=== PATIENT | female | born 1955 | race Caucasian/White ===

== ENCOUNTER 2017-02-21 08:08 | Inpatient (IN) | payer BC ==
[2017-01-04 13:07] LABS: BASO % 0.5 %; BASO ABS # 0.03 K/uL (0-0.2); COMPLETE YES; EOS % 1.4 %; HEMATOCRIT 40.2 % (37-47); IG% 0.2 %; LYMPH % 32.3 %; LYMPH ABS # 1.79 K/uL (1.2-3.4); MEAN CELL VOLUME 93.5 fL (80-100); MEAN CORPUSCULAR HEMOGLOBIN 30.5 pg (25-34); MEAN CORPUSCULAR HGB CONC 32.6 g/dl (32-36); MONO % 9.5 %; NEUT % 56.1 %; PLATELET COUNT 261 K/uL (130-400); WHITE BLOOD COUNT 5.55 K/uL (4.8-10.8)
[2017-01-04 13:09] VITALS: BMI 44.0
[2017-01-04 13:25] LABS: INR 0.9 (0.9-1.1)
--- NOTE | 2017-01-04 13:52 | PAT Medication Instructions ---
Service Date Jan 04, 2017. Current Home Medication List Acetaminophen (Tylenol), 1,000 MG PO PRN Cholecalciferol (Vitamin D3), 1 CAP PO HS Duloxetine Hcl (Cymbalta), 60 MG PO QPM Hydrochlorothiazide (Hctz), 25 MG PO PRN Multivitamin (Multivitamin), 1 TAB PO HS Medication Instructions For Your Scheduled Surgery - Hold the following medications the morning of surgery: Hydrochlorothiazide (Hctz), 25 MG PO PRN - Take the following medications the morning of surgery with a sip of water: Acetaminophen (Tylenol), 1,000 MG PO PRN (if needed) - Take the following medications as scheduled the night before surgery: Multivitamin (Multivitamin), 1 TAB PO HS Duloxetine Hcl (Cymbalta), 60 MG PO QPM Acetaminophen (Tylenol), 1,000 MG PO PRN (if needed) Cholecalciferol (Vitamin D3), 1 CAP PO HS Hydrochlorothiazide (Hctz), 25 MG PO PRN (if needed) If you have any questions please call us at [phone] or [phone] or [phone]
[2017-01-04 14:29] LABS: BUN/CREATININE RATIO 20.3 (10-20); CALCIUM 8.5 mg/dl (8.5-10.1); CREATININE 0.73 mg/dl (0.60-1.20); POTASSIUM 4.1 mmol/L (3.5-5.1)
--- NOTE | 2017-02-18 14:59 | HISTORY & PHYSICAL EXAMINATION ---
DATE OF ADMISSION: 02/21/2017 CHIEF COMPLAINT: Bilateral knee pain and discomfort, right side greater than left. HISTORY OF PRESENT ILLNESS: The patient is a 61-year-old female who presents for treatment of her knees. She has got fairly long history of bilateral knee pain and discomfort. The right knee is hurting more than the left, but the left knee has hurt for a longer period of time. She has been through extensive conservative treatment including having her 1 knee scoped 3 years ago. She has had steroid shots and viscosupplementation. This has become less successful over time. She is now interested in considering surgery. She did have a gastric bypass surgery 11 years or so ago in an attempt to lose weight. She still has significant obesity with a BMI of 44. PAST MEDICAL HISTORY: 1. Mild sleep apnea. 2. Fibromyalgia. 3. History of blood clots dating back to 1973 due to oral contraceptive. No clot since then and no clotting disorder. 4. Obesity with BMI 44. 5. Low back pain. PAST SURGICAL HISTORY: 1. . 2. Cholecystectomy. 3. Gastric bypass surgery 11 years ago. 4. Left knee arthroscopy 4 years ago. 5. Hysterectomy. ALLERGIES: NOVOCAIN, WHICH CAUSES SWELLING. No bleeding problems. ALSO TO PREDNISONE. CURRENT MEDICINES: Include: 1. Cymbalta once a day. 2. Unspecified water pill. 3. Vitamin D. 4. Multivitamins. SOCIAL HISTORY: A 61-year-old white female. She is single. She does live by herself. No alcohol intake. No tobacco intake. FAMILY HISTORY: Significant for heart disease and diabetes. REVIEW OF SYSTEMS: Significant for blood clot in the 70s. This was thought to be related to oral contraceptive use. She had no further clots. No known clotting disorder. No chest pain or shortness of breath. No history of DVT. History of sleep apnea but does not use a CPAP machine. PHYSICAL EXAMINATION: GENERAL: Reveals a pleasant, middle-aged female. HEAD, EYES, EARS, NOSE, AND THROAT EXAMINATION: Benign. NECK: Supple. No lymphadenopathy. LUNGS: Clear to auscultation. HEART: Regular rate and rhythm. ABDOMEN: Soft, nontender, nondistended. EXTREMITY EXAMINATION: Grossly neurovascularly intact except as follows: Examination of both knees reveals the patient walks with a slight varus alignment to her knees. She has small knee effusions bilaterally. Range of motion is near full extension, 120 degrees of flexion bilaterally. She is tender over the medial joint line of both knees. X-RAYS: X-rays of both knees show advanced bilateral knee DJD. She has got a little bit of tibial femoral subluxation. The right knee is actually a little bit worse than the left. ASSESSMENT: A 61-year-old white female with a long history of bilateral knee pain, discomfort and degenerative joint disease and failed conservative care. The right knee is more symptomatic than the left. She would like to have her right knee replaced. PLAN: We are going to proceed with right knee replacement. The risks and benefits of this procedure were explained to the patient including but not limited to DVT, PE, , infection, neurological injury, vascular injury, bleeding problem, pain, limited range of motion, stiffness, failure to relieve symptoms, incomplete relief of symptoms, need for further surgery in the future, fracture, leg length inequality, nerve palsy, persistent pain, etc. The patient understands and desires to proceed. Informed consent was obtained. She does have a history of blood clot years ago but nothing since then. Will use DVT prophylaxis including thigh-high TEDs, SCDs, and aspirin.
[2017-02-21] VITALS (7 sets, daily range): BP systolic 112–126; BP diastolic 65–76; PULSE 60–78; TEMP 36.4–36.8; O2SAT 93–99; Ht 165.1 cm; Wt 121.1 kg
[~2017-02-21] VITALS: Ht 165.1 cm; Wt 121.1 kg
[~2017-02-21 08:08] MED LIST: ACET-1256 PO; ACETAMINOPHEN 500 MG TAB PO SCH; ATROPINE SULFATE 0.1 MG/ML 5ML SYR IV PRN; BUPIVACAINE 0.25% 30 ML VIAL ONE; BUPIVACAINE 0.5 % 5 MG/1 ML PF 10ML VIAL ONE; BUPIVACAINE LIPOSOME 266 MG, BUPIVACAINE/EPINEPHRINE INJ 50 ML, SODIUM CHLORIDE 0.9% PF... INFIL SCH; CEFAZOLIN 3000 MG/65 ML D5W 65 ML IV SCH; CHOL2000 PO; DULO60CA44 PO; EpHEDrine SULFATE INJ 50 MG/ML AMP IV PRN; FAMOTIDINE 20 MG TAB PO SCH; FENTANYL CITRATE INJ 50 MCG/1 ML 2 ML VIAL IV PRN; GABAPENTIN 300 MG CAP PO SCH; HYDR25TA4 PO; LACTATED RINGER'S 1000ML 1,000 ML IV SCH; LACTATED RINGER'S 1000ML 500 ML IV ONE; METOCLOPRAMIDE HCL 10 MG TAB PO SCH; MULT-506 PO; ONDANSETRON INJ 2 MG/ML 2 ML VIAL IV PRN; SCOPOLAMINE 1.5 MG TDSY TD SCH; TRANEXAMIC ACID INJ 1,000 MG in SODIUM CHLORIDE 0.9% 100ML 100 ML IV SCH
--- NOTE | 2017-02-21 08:52 | History & Physical Bridge Note ---
H&P Re-Evaluation Bridge Note: I have examined the patient, reviewed the History & Physical and in the interval since the performance of the History & Physical I have noted the following changes of clinical significance: No changes noted
[2017-02-21] MEDS ORDERED: MIDAZOLAM HCL 1 MG/ML 2ML VIAL ONE ×4 (08:53→10:34)
[2017-02-21] MEDS ORDERED: FENTANYL CITRATE INJ 50 MCG/1 ML 2 ML VIAL ONE ×2 (08:54→10:07)
[2017-02-21] MEDS ORDERED: BUPIVACAINE/EPINEPHRINE 0.25% 1:200,000 30 ML VIAL ONE (10:18)
[2017-02-21] MEDS ORDERED: BACITRACIN 50000 UNIT VIAL ONE (10:18)
[2017-02-21] MEDS ORDERED: SODIUM CHLORIDE 0.9% PF 50 ML VIAL ONE (10:18)
[2017-02-21] MEDS ORDERED: BUPIVACAINE LIPOSOME 1/3% 266 MG/20 ML VIAL INFIL ONE (10:19)
[2017-02-21] MEDS ORDERED: BUPIVACAINE 0.5 % 5 MG/1 ML MPF 30ML VIAL ONE (10:20)
[2017-02-21] MEDS ORDERED: BETAMETH SOD PHOS/ACETATE IA 6 MG/ML IM PRN (10:45)
[2017-02-21] MEDS ORDERED: NURSING VERBAL MED ORDER ONE (10:45)
[2017-02-21] MEDS ORDERED: PROPOFOL IV EMULSION 10 MG/ML 20 ML VIAL IV ONE ×2 (11:15→12:09)
[2017-02-21] MEDS ORDERED: LIDOCAINE HCL 2% 2 ML VIAL (20MG/ML) ONE (11:15)
--- NOTE | 2017-02-21 13:02 | [facility] Post Operative Brief Note ---
Immediate Operative Summary Operative Date Feb 21, 2017. Pre-Operative Diagnosis Right Knee Degenerative Joint Disease; Left Knee Pain Post-Operative Diagnosis Same as preop Procedure(s) Performed Right Total Knee Arthroplasty; Left Knee Injection Surgeon Dr. Grullon Boatbuilder Supervisor Surgeon(s) Kyle Ang PA-C Estimated Blood Loss 50 ml Findings Bilateral Knee DJD Fluids (cc crystalloids) 1200 cc Specimens A. Right Knee Bone and Tissue Drains NONE Anesthesia Spinal Complication(s) None Disposition Recovery Room / PACU
[2017-02-21] MEDS ORDERED: SILVER SULFADIAZINE 1% CR 50 GM JAR EXT PRN (13:15)
[2017-02-21] MEDS ORDERED: ALUMINUM/MAGNESIUM/SIMETH (MAALOX MAX) 30 ML UDC PO PRN (13:15)
[2017-02-21] MEDS ORDERED: NO NSAIDS SCH (13:15)
[2017-02-21] MEDS ORDERED: MAGNESIUM HYDROXIDE SUSP 30 ML UDC PO PRN (13:15)
[2017-02-21] MEDS ORDERED: BISACODYL 10 MG SUPP PR PRN (13:15)
[2017-02-21] MEDS ORDERED: METOCLOPRAMIDE HCL INJ 5 MG/ML 2 ML VIAL IV PRN (13:15)
[2017-02-21] MEDS ORDERED: HYDROCHLOROTHIAZIDE 25 MG TAB PO PRN (13:15)
[2017-02-21] MEDS ORDERED: ZOLPIDEM TARTRATE 5 MG TAB PO PRN (13:15)
[2017-02-21] MEDS ORDERED: ONDANSETRON INJ 2 MG/ML 2 ML VIAL IV PRN (13:15)
[2017-02-21] MEDS ORDERED: DiphenhydrAMINE HCL 50 MG/ML VIAL IV PRN (13:15)
--- NOTE | 2017-02-21 13:46 | Anesthesiology Progress Note ---
Anesthesia Post Op Note Date & Time Feb 21, 2017 at 13:46 Vital Signs Pain Intensity: 0 Vital Signs Past 12 Hours Date Time Temp Pulse Resp B/P (MAP) Pulse Ox O2 Delivery O2 Flow Rate FiO2 02/21/17 13:25 60 13 106/73 97 Nasal Cannula 3 02/21/17 13:15 61 17 115/63 97 Nasal Cannula 3 02/21/17 13:05 71 18 121/59 97 Nasal Cannula 3 02/21/17 12:59 36.5 69 18 106/60 97 Nasal Cannula 3 02/21/17 08:48 36.8 78 20 126/69 97 Room Air Notes Mental Status: alert / awake / arousable, participated in evaluation Pt Amnestic to Procedure: Yes Nausea / Vomiting: adequately controlled Pain: adequately controlled Airway Patency, RR, SpO2: stable & adequate BP & HR: stable & adequate Hydration State: stable & adequate Neuraxial Anesthesia: was administered, sensory block is resolving Anesthetic Complications: no major complications apparent
--- NOTE | 2017-02-21 13:49 | DIAGNOSTIC IMAGING REPORT ---
R KNEE 1 OR 2 VIEWS ROUTINE CLINICAL HISTORY: AP/LATERAL IN PACU RIGHT KNEE knee replacement COMPARISON: None. DISCUSSION: Anatomic alignment status post total right knee arthroplasty. Good contact between prosthetic and underlying bone. Expected soft tissue postoperative change. IMPRESSION: Anatomic alignment status post total right knee arthroplasty. The above report was generated using voice recognition software. It may contain grammatical, syntax or spelling errors. Electronically signed by: Arslan Crowe M.D. 02/21/2017 1:48 PM Dictated Date/Time: 02/21/2017 1:47 PM
[2017-02-21] MEDS ORDERED: INFLUENZA ADMINISTRATION CHARGE ONE (15:45)
[2017-02-21] MEDS ORDERED: INFLUENZA VIRUS QUAD VACCINE 0.5 ML SYR IM. ONE (15:45)
[2017-02-21] MEDS: D5W AND 1/2NSS + 20MEQ KCL 1,000 ML IV SCH ×2 (15:55→22:21)
[2017-02-21] MEDS: CHECK SCOPOLAMINE PATCH PLACEMENT SCH (15:57)
[2017-02-21] MEDS ORDERED: TRANEXAMIC ACID INJ 1,000 MG in SODIUM CHLORIDE 0.9% 100ML 100 ML IV SCH (18:00)
[2017-02-21] MEDS: OXYCODONE HCL IR 5 MG TAB (IMMEDIATE RELEASE) PO PRN ×2 (18:19→19:46)
[2017-02-21] MEDS: FERROUS GLUCONATE 324 MG TAB PO SCH (18:20)
[2017-02-21] MEDS: CEFAZOLIN IV 2,000 MG in DEXTROSE 5% 50ML 50 ML IV SCH (19:39)
[2017-02-21] MEDS ORDERED: MULTIVITAMIN TAB PO SCH (21:00)
[2017-02-21] MEDS ORDERED: ASPIRIN 325 MG ECTAB PO SCH (21:00)
--- NOTE | 2017-02-21 21:10 | PROGRESS NOTE ---
DATE: 02/21/2017 SUBJECTIVE: A 61-year-old white female, postop from a right knee replacement and left knee injection. She is doing pretty well. She is starting to have more pain in her leg. No chest pain or shortness of breath. Not feeling dizzy or lightheaded. OBJECTIVE: VITAL SIGNS: Temperature 36.7. Vital signs stable. PHYSICAL EXAMINATION: GENERAL: Reveals a healthy pleasant, middle-aged female. She is sitting up in her bed, looks reasonably comfortable. She is talking to her friends. LUNGS: Clear to auscultation. HEART: Has a regular rate and rhythm. ABDOMEN: Soft, nontender, nondistended. EXTREMITIES: Grossly neurovascularly intact except as follows: Examination of the right leg reveals the leg to be well aligned. Dressing is clean, dry and intact. She can dorsiflex and plantarflex her foot appropriately. She is neurologically intact. X-RAYS: X-rays of the right knee from recovery room were reviewed. It shows a cemented right posterior stabilized total knee arthroplasty. Components looked to be in good position. A little bit of a rotated film. No signs of problems. ASSESSMENT: A 61-year-old white female, postop from a right knee replacement, doing pretty well. She also had her left knee injected. Her pain is controlled. She is neurologically intact. PLAN: 1. DVT prophylaxis including thigh-high TEDs, SCDs, and aspirin twice a day. 2. PT/OT. Weight bear as tolerated. Right total knee protocol. 3. Pain control, doing pretty well with current pain regimen. 4. IV antibiotics x24 hours. 5. Disposition: She is hoping to be discharged to [facility] for a brief rehab stay once medically stable.
[2017-02-21] MEDS: TAPENTADOL ER 50 MG TABCR PO SCH (22:19)
[2017-02-21] MEDS: DOCUSATE SODIUM 100 MG CAP PO SCH (22:20)
[2017-02-21] MEDS: SENNA 8.6 MG TAB PO SCH (22:20)
[2017-02-21] MEDS: ACETAMINOPHEN 500 MG TAB PO SCH (22:20)
[2017-02-21] MEDS: CHOLECALCIFEROL 1000 INTER.UNIT TAB PO SCH (22:21)
[2017-02-21] MEDS: DULOXETINE HCL 60 MG CAP PO SCH (22:21)
--- NOTE | 2017-02-21 22:31 | OPERATIVE REPORT ---
DATE OF OPERATION: 02/21/2017 SURGEON: Dr. Ernesto Grullon. DEPLOYMENT MANAGER: PHAN Winkler. PREOPERATIVE DIAGNOSIS: Bilateral knee degenerative joint disease. POSTOPERATIVE DIAGNOSIS: Same. PROCEDURE PERFORMED: 1. Right cemented posterior stabilized total knee arthroplasty. 2. Left knee injection with 2 mL of Celestone and 6 mL of 0.5% Marcaine. COMPLICATIONS: None. ESTIMATED BLOOD LOSS: 50 mL. FLUID REPLACEMENT: 1200 mL crystalloid fluid replacement. TOURNIQUET TIME: 51 minutes at 350 mmHg. ANESTHESIA: Spinal with adductor canal block. DRAINS: None. OPERATIVE INDICATIONS: The patient is a 61-year-old female who has had a long history of bilateral knee pain and discomfort. She describes it has gotten worse over the past several years. She did have a history of her left knee arthroscopy about 3-4 years ago with fairly minimal relief. She has been through extensive treatment including steroid shots and visco supplementation. This is minimally effective. She would like to proceed with total knee arthroplasty. Her right knee has been bothering more than the left. She elected to proceed with right knee replacement. She also wanted us to inject her left knee at the time under anesthesia. OPERATIVE FINDINGS: Operative findings revealed advanced bilateral knee DJD. She had a pretty extensive grade 4 changes in the medial femoral condyle and medial tibial plateau. She had a very large knee joint effusion on the right side. She had varus deformity to her knee. Large soft tissue envelope. OPERATIVE IMPLANTS: Operative implants consisted of: 1. Biomet Vanguard size 67.5 right posterior stabilized femoral component. 2. Biomet size 71 tibial tray. 3. A 12 mm posterior stabilized polyethylene insert. 4. A 31 x 8 all poly patella. OPERATIVE PROCEDURE: The patient was taken to the operating room, identified and placed on operative table in supine position. All contact areas were appropriately padded. IV antibiotics were provided by the anesthesia team. A spinal anesthetic and adductor canal block had been provided in the holding area. Ferrari catheter was placed in sterile fashion. Right thigh tourniquet was then placed. Attention was first drawn to the left knee. The left knee was cleaned with alcohol. I injected the left knee with 2 mL of Celestone and 6 mL of 0.5% Marcaine. A bandage was applied followed by ALESSANDRO stockings. Attention was then drawn to the right leg. The right leg was prepped and draped in the usual sterile fashion. The right leg was then elevated and exsanguinated with the use of an Esmarch. The tourniquet was placed at 350 mmHg. An anterior approach to the right knee was then performed through a longitudinal incision centered over the patella. Sharp dissection was carried through the subcutaneous tissues down to the level of the extensor mechanism. A medial parapatellar arthrotomy incision was made. Some subperiosteal dissection was carried out medially. The fat pad was resected from beneath the patellar tendon. The lateral patellofemoral ligament was released. The patella was everted and knee was flexed. The osteophytes were taken off the distal femur. The ACL and PCL were then released from the distal femur and the tibia subluxated anteriorly. The external tibial alignment jig was then placed in the anterior face of the tibia and adjusted 14 mm medially. Proximal tibial cut was made to remove about 3-4 mm of bone from the most deficient aspect of the medial side. She did not have excessive wear of the medial side, so we took a little extra bone. The tibia was then sized to a size 71. Attention was then drawn to the femur. The distal femur was entered with a sharp drill bit. Intramedullary canal was suctioned. A right 5 degree valgus cutting guide was placed. Distal femoral cutting block was pinned in place. Distal femoral cut was made to take an additional 3 mm of bone off the distal femur. The femur was then sized to a size 67.5. We did downsize this slightly. The AP cutting block was pinned parallel to the epicondylar axis, which was 3 degrees of external rotation. The anterior cut, anterior chamfer, posterior cut, and posterior chamfer cuts were made. Box cutting guide was placed and adjusted slightly lateral and the box cut was made. The knee was flexed. The remnants of the medial and lateral menisci were excised. The osteophytes were taken off the posterior aspect of the femur. A trial femoral component was placed. Tibial tray was pinned in maximum external rotation and drill and stem punch were used to create defect in proximal tibia for the tibial tray. The knee was then trialed and a 12 mm insert was fit most appropriately. It was still a little bit loose with this, but I felt it was too tight with a 14. We elected to use these implants. Attention was then drawn to the patella. The patella was cleaned of all soft tissues. Patella thickness measured 21 mm in thickness. This was cut down to 13. It was sized to a size 31 patella. Lug holes were drilled for the 31 patella. Lateral osteophyte was removed. Patella button was placed. Knee was taken through range of motion and patella tracked nicely with no thumbs test. Attention was then drawn toward placement of permanent components. All trial components were removed. Bone plug was placed in the distal femur to limit blood loss. A double batch of Palacos G cement was mixed. A right size 67.5 posterior stabilized femoral component, size 71 tibial tray, a 12 mm posterior stabilized polyethylene insert, and a 31 x 8 all poly patella were then cemented in place. Knee was brought out into full extension until cement hardened. A final cement check was then performed. Pericapsular tissues were injected with a total of 100 mL of a combination of 20 mL of Exparel, 30 mL of normal saline, 50 mL of 0.25% Marcaine with epinephrine. The patient did receive 1 gram of tranexamic acid. The tourniquet was then let down for final tourniquet time of 51 minutes. Hemostasis was assured with use of electrocautery. The extensor mechanism was then closed with a combination of #1 PDS suture and #1 Vicryl suture in a [id number] fashion. Extensor mechanism was checked and found to be intact. Subcutaneous tissues were then closed with 2-0 Dexon suture in a buried interrupted fashion. Skin was closed with skin kaelyn. The leg was then cleaned, dried and a sterile dressing of Xeroform, 4 x 4, sterile cast padding and Scott bandage were applied. The patient was then transferred to the recovery room in stable condition. The patient tolerated the procedure with no complications. All needle and sponge counts were correct at the end of the operation. I attest to the content of the Intraoperative Record and any orders documented therein. Any exception s are noted below.
[2017-02-22] MEDS: CHECK SCOPOLAMINE PATCH PLACEMENT SCH ×3 (00:20→16:11)
[2017-02-22] MEDS: OXYCODONE HCL IR 5 MG TAB (IMMEDIATE RELEASE) PO PRN ×3 (00:32→19:19)
[2017-02-22] MEDS: CEFAZOLIN IV 2,000 MG in DEXTROSE 5% 50ML 50 ML IV SCH (03:20)
[2017-02-22] MEDS: ACETAMINOPHEN 500 MG TAB PO SCH ×3 (05:26→21:05)
[2017-02-22] MEDS: D5W AND 1/2NSS + 20MEQ KCL 1,000 ML IV SCH ×2 (05:26→10:28)
[2017-02-22 06:57] LABS: HEMATOCRIT 39.3 % (37-47); MEAN CELL VOLUME 92.3 fL (80-100); MEAN CORPUSCULAR HGB CONC 32.6 g/dl (32-36); MEAN PLATELET VOLUME 10.3 fL (7.4-10.4); PLATELET COUNT 229 K/uL (130-400); RED BLOOD COUNT 4.26 M/uL (4.2-5.4); WHITE BLOOD COUNT 9.95 K/uL (4.8-10.8)
[2017-02-22 07:25] LABS: CALCIUM 8.6 mg/dl (8.5-10.1); CREATININE 0.75 mg/dl (0.60-1.20); POTASSIUM 4.4 mmol/L (3.5-5.1)
[2017-02-22 07:50] VITALS: BP 131/78; PULSE 71; TEMP 36.7; O2SAT 95
[2017-02-22] MEDS ORDERED: ASPEC81 PO (08:28)
[2017-02-22] MEDS ORDERED: RXC5 PO (08:28)
[2017-02-22] MEDS ORDERED: NCYSR50 PO (08:28)
[2017-02-22] MEDS ORDERED: ACET-24 PO (08:28)
--- NOTE | 2017-02-22 08:29 | Discharge Instructions ---
Discharge Instructions Date of Service Feb 22, 2017. Admission Reason for Admission: Right Knee Degenerative Joint Disease Discharge Discharge Diagnosis / Problem: Right Knee Replacement Discharge Goals Goal(s): Decrease discomfort, Improve function, Increase independence, Improve disease control, Therapeutic intervention Activity Recommendations Activity Level: Assistance Required Therapies: Physical Therapy, Occupational Therapy . Additional Information Patient informed of condition: Yes Advance Directives: No DNR: No Level of Care: Acute Rehab Communicable Disease: No Prognosis: Improving Instructions / Follow-Up Instructions / Follow-Up ACTIVITY RECOMMENDATIONS: Physical Therapy: * You will go to physical therapy three times each week for four to six weeks after your surgery in order to regain your knee range of motion and to retrain your knee to work properly. * It is just as important to make sure you are getting your knee perfectly straight as it is to regain your knee bend. * Taking a pain pill an hour before therapy can help you have a more productive and comfortable therapy session. Home Exercise: * You were shown a series of exercises (heel props, heel slides, etc.) in the hospital. Do these exercises three to four times each day including the exercises you were shown in physical therapy. Walking: * Get up and walk several times each day. For the first four weeks, try not to stand or walk for more than one hour at a time. If you do stand or walk for more than one hour, you will not hurt anything, but your knee and leg will likely swell. * As you feel comfortable, you may change from the walker or crutches to a cane and then to independent walking. MEDICATIONS: New Medicine: * You will likely be taking one or more of these medications: 1. Nucynta - A long-acting pain medication. Take 1 tablet twice a day for the first ten days to decrease your baseline level of pain. 2. Oxycodone - A quick and shorter-acting pain medication. Take one to two tablets every four to six hours to lessen your pain. 3. Aspirin - Thins your blood to lessen the chance of forming a blood clot. * The most common side effects of pain medicine and iron are nausea and constipation. If nausea or constipation is too much of a problem or if you have any questions about your new medicines or doses, call [facility] at [phone]. We will try to help you manage these issues. VERY IMPORTANT TO READ AND REVIEW" Pain: * The immediate post-operative period after knee replacement surgery is often quite painful. * You are given a prescription for pain medicine. You should take it, as directed, when you need it, especially before physical therapy and before going to bed. Pain that interferes with sleep is very common and can last several months. * You will likely need pain medicine for the first four to six weeks. It will not stop all of the pain. The pain will lessen and as you feel better, you may change to milder pain medicine such as Tylenol. * The most common side effects of pain medicine are nausea and constipation, so don't take more than you need. SPECIAL CARE INSTRUCTIONS: TEDs/Elastic Stockings: * The white elastic stockings help limit swelling and prevent blood clots from forming in your legs. The more you wear them, the more they work. * Wear them for six weeks after knee replacement surgery and four weeks after partial knee replacement. Prevention of Infection: * Take antibiotics one hour before any dental cleaning, dental work, urological procedure, gastrointestinal procedure or any invasive surgery in order to prevent your new joint from getting infected. * You may get the antibiotics from the doctor performing the procedure or you may call our office at before and we will call in a prescription to the pharmacy of your choice. Things to Watch For: * Drainage from the incision site that occurs more than one week after your surgery. * Severely increased knee/leg pain or swelling. * Increased redness at the incision site. * Fever above 102 degrees Fahrenheit. * Unusual chest pain or shortness of breath. * Unusual pain or burning with urination. Call [facility] at with any of the above problems or if you have any questions about your medicines or recovery. FOLLOW UP VISIT: Make an appointment to see your doctor for approximately two weeks after surgery for a progress check and staple removal by calling the office at . Current Hospital Diet Patient's current hospital diet: Regular Diet Discharge Diet Recommended Diet: Regular Diet Procedures Procedures Performed: Right Total Knee Arthroplasty; Left Knee Injection Pending Studies Studies pending at discharge: no Medical Emergencies . Who to Call and When: Medical Emergencies: If at any time you feel your situation is an emergency, please call [phone] immediately. . Non-Emergent Contact Non-Emergency issues call your: Surgeon . . "Provider Documentation" section prepared by Ernesto Grullon. . Core Measure Problem Core Measures: None
--- NOTE | 2017-02-22 08:47 | PROGRESS NOTE ---
DATE: 02/22/2017 SUBJECTIVE: A 61-year-old female postop day 1 from a right knee replacement and left knee injection. She is doing pretty well. Pain is reasonably well controlled overnight. No chest pain or shortness of breath. Not feeling dizzy or lightheaded. OBJECTIVE: VITAL SIGNS: Temperature is 36.7. Vital signs stable. GENERAL: Physical examination reveals a pleasant, middle-aged female. She was sitting up in the bathroom and washing up when I visited this morning. EXTREMITIES: Examination of the right leg reveals the dressing to be clean, dry and intact. She can dorsiflex and plantarflex her foot appropriately. She is neurologically intact. LABORATORY DATA: Hemoglobin is 12.8 and hematocrit 39.3. Electrolytes are stable. ASSESSMENT: A 61-year-old female postop day 1 from right knee replacement and left knee injection. She is doing pretty well. Pain has been reasonably well controlled. PLAN: 1. DVT prophylaxis including thigh-high TEDs, SCDs, and low dose aspirin. 2. PT/OT. Weightbear as tolerated. Right total knee protocol. 3. Pain control. Doing reasonably well with current pain regimen. 4. Disposition: She is hoping to be discharged to [facility] for a brief rehab stay. COLLIN
[2017-02-22] MEDS: TAPENTADOL ER 50 MG TABCR PO SCH ×2 (09:11→21:04)
[2017-02-22] MEDS: PANTOprazole SOD 40 MG TAB PO SCH (09:12)
[2017-02-22] MEDS: MULTIVITAMIN TAB PO SCH (09:13)
[2017-02-22] MEDS: DOCUSATE SODIUM 100 MG CAP PO SCH ×2 (09:13→21:05)
[2017-02-22] MEDS: FERROUS GLUCONATE 324 MG TAB PO SCH ×3 (09:13→18:31)
[2017-02-22] MEDS: ASPIRIN 81 MG ECTAB PO SCH ×2 (10:29→21:05)
[2017-02-22 10:35] VITALS: BP 120/67; PULSE 75; O2SAT 96
--- NOTE | 2017-02-22 10:47 | Anesthesiology Progress Note ---
Anesthesia Post Op Note Date & Time Feb 22, 2017 at 10:46 Vital Signs Pain Intensity: 6.0 Vital Signs Past 12 Hours Date Time Temp Pulse Resp B/P (MAP) Pulse Ox O2 Delivery O2 Flow Rate FiO2 02/22/17 07:50 36.7 71 16 131/78 (95) 95 Room Air 02/22/17 07:31 Room Air 02/22/17 00:25 Room Air 02/21/17 23:28 36.7 60 14 112/65 (81) 93 Room Air Notes Mental Status: alert / awake / arousable, participated in evaluation Pt Amnestic to Procedure: Yes Nausea / Vomiting: adequately controlled Pain: adequately controlled Airway Patency, RR, SpO2: stable & adequate BP & HR: stable & adequate Hydration State: stable & adequate Neuraxial Anesthesia: was administered, sensory block resolved SAB with PNB tolerated well. Pain post op, history of fibromyalgia. Improved with po pain meds ordered from orthopedics.
[2017-02-22 11:28] VITALS: BP 109/71; PULSE 85; TEMP 36.7; O2SAT 96
[2017-02-22] MEDS: MoRPHine SULFATE 2 MG/ML CARP IV PRN ×3 (13:46→20:02)
[2017-02-22 15:33] VITALS: BP 110/67; PULSE 60; TEMP 36.9; O2SAT 96
[2017-02-22] MEDS: DULOXETINE HCL 60 MG CAP PO SCH (21:50)
[2017-02-22] MEDS: SENNA 8.6 MG TAB PO SCH (21:51)
[2017-02-22] MEDS: CHOLECALCIFEROL 1000 INTER.UNIT TAB PO SCH (22:21)
[2017-02-22 22:58] VITALS: BP 116/63; PULSE 68; TEMP 37.5; O2SAT 94
[2017-02-23] MEDS: CHECK SCOPOLAMINE PATCH PLACEMENT SCH ×3 (00:11→16:00)
[2017-02-23] MEDS: MoRPHine SULFATE 2 MG/ML CARP IV PRN ×3 (00:23→13:17)
[2017-02-23] MEDS: ACETAMINOPHEN 500 MG TAB PO SCH ×3 (05:19→21:16)
[2017-02-23 07:09] VITALS: BP 116/73; PULSE 55; TEMP 36.7; O2SAT 99
[2017-02-23] MEDS: ASPIRIN 81 MG ECTAB PO SCH ×2 (08:41→21:15)
[2017-02-23] MEDS: TAPENTADOL ER 50 MG TABCR PO SCH ×2 (08:41→21:14)
[2017-02-23] MEDS: PANTOprazole SOD 40 MG TAB PO SCH (08:41)
[2017-02-23] MEDS: FERROUS GLUCONATE 324 MG TAB PO SCH ×3 (08:41→18:00)
[2017-02-23] MEDS: MULTIVITAMIN TAB PO SCH (08:41)
[2017-02-23] MEDS: OXYCODONE HCL IR 5 MG TAB (IMMEDIATE RELEASE) PO PRN ×3 (08:41→21:13)
[2017-02-23] MEDS: DOCUSATE SODIUM 100 MG CAP PO SCH ×2 (08:42→21:14)
--- NOTE | 2017-02-23 13:47 | PROGRESS NOTE ---
DATE: 02/23/2017 DATE: 02/23/2017 SUBJECTIVE: A 61-year-old white female postop day 2 from a right knee replacement, left knee injection. She is doing pretty well. A little bit more pain last evening. No chest pain or shortness of breath. Not feeling dizzy or lightheaded. OBJECTIVE: VITAL SIGNS: Temperature 36.7. Vital signs stable. PHYSICAL EXAMINATION: GENERAL: Reveals a healthy, pleasant middle-aged female. I had to wake her this morning. LUNGS: Clear to auscultation. HEART: Has a regular rate and rhythm. ABDOMEN: Soft, nontender, nondistended. EXTREMITY EXAMINATION: Grossly neurovascularly intact except as follows: Examination of the right leg reveals the dressing to be clean, dry and intact. Leg is well aligned. She can dorsiflex and plantarflex her foot appropriately. She is neurologically intact. ASSESSMENT: A 61-year-old white female postop day 2 from a right knee replacement, left knee injection. She is doing pretty well. Pain is reasonably well controlled. She is neurologically intact. She is waiting to look into getting into a rehab preferably or [facility] facility. PLAN: 1. DVT prophylaxis including thigh-high TEDs, SCDs, and aspirin twice a day. 2. PT/OT. Weight bear as tolerated. Left total knee protocol. 3. Pain control. Doing reasonably well with current pain regimen. 4. Disposition. She is hoping to be discharged to rehab. Awaiting insurance and [employer] reports.
[2017-02-23 15:09] VITALS: BP 106/65; PULSE 63; TEMP 36.7; O2SAT 97
[2017-02-23] MEDS: SENNA 8.6 MG TAB PO SCH (21:00)
[2017-02-23] MEDS: DULOXETINE HCL 60 MG CAP PO SCH (21:14)
[2017-02-23] MEDS: CHOLECALCIFEROL 1000 INTER.UNIT TAB PO SCH (21:15)
[2017-02-23 22:57] VITALS: BP 114/69; PULSE 75; TEMP 37.7; O2SAT 96
[2017-02-24] MEDS: CHECK SCOPOLAMINE PATCH PLACEMENT SCH (00:13)
[2017-02-24] MEDS: OXYCODONE HCL IR 5 MG TAB (IMMEDIATE RELEASE) PO PRN ×3 (02:39→12:40)
[2017-02-24] MEDS: ACETAMINOPHEN 500 MG TAB PO SCH (06:15)
--- NOTE | 2017-02-24 07:48 | PROGRESS NOTE ---
DATE: 02/24/2017 SUBJECTIVE: 61-year-old female postop day 3 from a right knee replacement. She is doing okay. Pain is reasonably well controlled. We are waiting for insurance approval for rehabilitation. No new complaints. OBJECTIVE: VITAL SIGNS: Temperature 37.7. Vital signs stable. PHYSICAL EXAMINATION: GENERAL: Reveals a healthy pleasant, middle-aged female. She is sitting up in bed, looks pretty comfortable. EXTREMITIES: Examination of the right leg reveals it to be well aligned. Dressing is clean, dry and intact. She can dorsiflex and plantarflex her foot appropriately. She is neurologically intact. ASSESSMENT: 61-year-old female postop day 3 from right knee replacement and left knee injection. She is doing pretty well. We are just waiting for insurance approval for rehabilitation. PLAN: 1. DVT prophylaxis including thigh-high TEDs, SCDs, and aspirin twice a day. 2. PT/OT. Weightbearing as tolerated. Right total knee protocol. 3. Pain control, doing pretty well with current pain regimen. 4. Disposition: She is hoping to be discharged to [facility] for a rehab stay. If not, she will look into a [facility] facility.
[2017-02-24] MEDS: TAPENTADOL ER 50 MG TABCR PO SCH (08:41)
[2017-02-24] MEDS: FERROUS GLUCONATE 324 MG TAB PO SCH ×2 (08:41→12:01)
[2017-02-24] MEDS: ASPIRIN 81 MG ECTAB PO SCH (08:42)
[2017-02-24] MEDS: DOCUSATE SODIUM 100 MG CAP PO SCH (08:42)
[2017-02-24] MEDS: MULTIVITAMIN TAB PO SCH (08:43)
[2017-02-24] MEDS: PANTOprazole SOD 40 MG TAB PO SCH (08:43)
[2017-02-24 10:04] VITALS: BP 110/72; PULSE 82; TEMP 36.8; O2SAT 98
--- NOTE | 2017-02-28 00:09 | DISCHARGE SUMMARY ---
ADMITTING PHYSICIAN AND SURGEON: Dr. Grullon. ADMITTING DIAGNOSIS: Bilateral knee degenerative joint disease. PROCEDURE PERFORMED: 1. Right total knee arthroplasty. 2. Left knee injection. SECONDARY DIAGNOSES: Sleep apnea, fibromyalgia, blood clots, obesity, low back pain. CONSULTS: None obtained. HISTORY AND PHYSICAL EXAMINATION: Well documented in the patient's chart. HOSPITAL COURSE: The patient was admitted on 02/21/2017, underwent total knee arthroplasty as well as a knee injection, tolerated the procedure well. There were no complications. She was transferred to the PACU postoperatively and later to the orthopedic floor for further care. She was given Ancef for antibiotic prophylaxis; ALESSANDRO stockings, SCDs and aspirin for DVT prophylaxis. Hemoglobin, hematocrit and vital signs were monitored during hospital stay and remained stable, did not require any blood transfusions. There were no complications. By postoperative day 3, she was tolerating a general diet. Pain was controlled with oral pain medicine. She was participating in physical therapy, had no signs or symptoms of deep vein thrombosis. On postoperative day 3, she was transferred to a rehab facility. She was given printed discharge instructions including new prescriptions for extra strength Tylenol, aspirin 81 mg b.i.d., oxycodone and Nucynta. Continue her home medicines with the exception of her home dose of aspirin which was changed. Continue physical therapy. Weightbearing as tolerated. ALESSANDRO stockings. Follow up in 10-12 days or sooner if there are any problems or concerns.
== END 2017-02-24 13:19 | DRG 470 ==
LOC: C.ACU 08:08 → C.3E 08:30 → ENRESERV 13:29
PROVIDERS: ADMIT Orthopaedic Surgery Sports Medicine; ATTEND Orthopaedic Surgery Sports Medicine
PROC: 3E0U3GC Introduction of Other Therapeutic Substance into Joints, Percutaneous Approach (ICD-10-PCS; principal; 2017-02-21 10:40)
PROC: 0SRC0J9 Replacement of Right Knee Joint with Synthetic Substitute, Cemented, Open Approach (ICD-10-PCS; principal; 2017-02-21 10:40)
DX: M17.0 Bilateral primary osteoarthritis of knee (principal); Z68.41 Body mass index [BMI] 40.0-44.9, adult; G47.30 Sleep apnea, unspecified; M79.7 Fibromyalgia; E66.9 Obesity, unspecified; Z79.899 Other long term (current) drug therapy; Z86.718 Personal history of other venous thrombosis and embolism